=== PATIENT | female | born 2000 | race Two or more races ===

== ENCOUNTER → 2019-10-05 | Outpatient (CLI) | payer SELFPAY ==
--- NOTE | 2019-10-05 14:55 | RADIOLOGY REPORT (SQ) ---
EXAM DESCRIPTION: U/S EF4LBLC TRNABD 1GES W/ODOP COMPLETED DATE/TIME: 10/05/2019 1:38 pm REASON FOR STUDY: ENCTR FOR SUPERVISION OF NORMAL FIRST , 1ST TRIMESTER (Z34.01) Z34.01 EN CNTR FOR SUPRVSN OF NORMAL FIRST PREG, FIRST TRIMES COMPARISON: None. TECHNIQUE: Transabdominal static and realtime grayscale images acquired of the pelvis. Additional se lected spectral and color Doppler images recorded. All images stored on PACs. bHCG: Not available. CLINICAL DATES: LMP 07/28/2019. 10 weeks 0 days. LIMITATIONS: None. FINDINGS: FETUS: Single Living intrauterine . ULTRASOUND EGA: 10 weeks 0 days. ULTRASOUND AMADOR: 05/02/2020 EFW: Not applicable less than 20 weeks. CRL: 3.2 cm FHR: 165 beats per minute. SURVEY: No visualized anomalies. AMNIOTIC FLUID: Adequate amount. PLACENTA: Not yet developed due to early gestation. SUBCHORIONIC BLEED: No SIZE OF BLEED: Not applicable. UTERUS: No masses. No anomalies. CERVICAL LENGTH: 2.4 cm Closed. RIGHT ADNEXA: Normal ovary with normal vascular flow. 3.2 x 2 x 2.3 cm. There is a 2 cm corpus lute um. No adnexal free fluid. No adnexal masses. LEFT ADNEXA: Normal ovary with normal vascular flow. 2.2 x 1.5 x 1.5 cm. No adnexal free fluid. No adnexal masses. FREE FLUID: None. OTHER: No other significant finding. IMPRESSION: LIVING INTRAUTERINE . EGA 10 weeks 0 days. Trimester of : First trimester - 0 to 13 weeks. TECHNICAL DOCUMENTATION: JOB ID: [id number] [employer]- All Rights Reserved rev-01/28 Reading location - IP/workstation name: [email or web address]
== END ==
LOC: RAD 12:35
PROVIDERS: ATTEND Midwife
DX: Z34.01 Encounter for supervision of normal first pregnancy, first trimester (principal); Z3A.10 10 weeks gestation of pregnancy
CPT/HCPCS: 76801

== ENCOUNTER 2020-01-21 01:09 | Outpatient (CLI) | payer MEDICAID ==
[2020-01-21 01:56] LABS: APPEARANCE,URINE CLEAR; BILIRUBIN,URINE NEGATIVE (NEGATIVE); COLOR,URINE YELLOW; GLUCOSE, URINE NEGATIVE (NEGATIVE); KETONES,URINE NEGATIVE (NEGATIVE); LEUKOCYTE ESTERASE,URINE TRACE (NEGATIVE); NITRITE,URINE NEGATIVE (NEGATIVE); PROTEIN,URINE NEGATIVE (NEGATIVE); UROBILINOGEN,URINE NEGATIVE mg/dL (<2.0)
[2020-01-21 02:11] LABS: URINE AMPHETAMINES SCREEN NEGATIVE; URINE BARBITURATES SCREEN NEGATIVE; URINE BENZODIAZEPINES SCREEN NEGATIVE; URINE COCAINE SCREEN NEGATIVE; URINE MARIJUANA (THC) SCREEN NEGATIVE; URINE METHADONE SCREEN NEGATIVE; URINE PHENCYCLIDINE SCREEN NEGATIVE
--- NOTE | 2020-01-21 03:05 | RADIOLOGY REPORT (SQ) ---
EXAM DESCRIPTION: US LIMITED COMPLETED DATE/TME: 01/21/2020 02:05 CLINICAL HISTORY: 19 years Female, cramping Comparison: None. TECHNIQUE/LIMITATION: Targeted OB sonogram for requested parameters only. Transabdominal and transvaginal. FINDINGS: Single IUP EGA is 25w2d with AMADOR of 05/03/2020 EFW is 765g at 42% (George) Cardiac activity: 136-bpm. LILLIAN: 12.3-cm Placenta: Fundal. No demonstrated abruption or previa. (Imaging note: Ultrasound does not detect most cases of abruption and "placental abruption" is considered a clinical diagnosis.) Presentation: Vertex. Cervical length: Mild funneling pattern. Else, 3.0-cm closed appearance. IMPRESSION: Targeted OB sonogram for requested parameters
[2020-01-21] MEDS ORDERED: HYDROXYZINE PAMOATE 50 MG CAPSULE PO ONE (03:22)
[2020-01-21] MEDS ORDERED: HYDROXYZINE PAMOATE 50 MG CAPSULE ONE (03:37)
== END 2020-01-21 04:00 | disposition home or self-care (01) ==
LOC: LC 01:09
PROVIDERS: ATTEND Obstetrics & Gynecology
DX: O47.02 False labor before 37 completed weeks of gestation, second trimester (principal); Z3A.25 25 weeks gestation of pregnancy
CPT/HCPCS: 59899; 81001; 80307; 76815; J3490

== ENCOUNTER 2020-05-05 11:02 | Outpatient (CLI) | payer MEDICAID ==
[2020-05-05 11:53] LABS: APPEARANCE,URINE CLOUDY; BILIRUBIN,URINE NEGATIVE (NEGATIVE); COLOR,URINE YELLOW; GLUCOSE, URINE NEGATIVE (NEGATIVE); KETONES,URINE NEGATIVE (NEGATIVE); LEUKOCYTE ESTERASE,URINE LARGE (NEGATIVE); NITRITE,URINE NEGATIVE (NEGATIVE); PROTEIN,URINE NEGATIVE (NEGATIVE); URINE SPECIFIC GRAVITY 1.015; UROBILINOGEN,URINE NEGATIVE mg/dL (<2.0)
[2020-05-05 12:43] LABS: URINE AMPHETAMINES SCREEN NEGATIVE; URINE BARBITURATES SCREEN NEGATIVE; URINE BENZODIAZEPINES SCREEN NEGATIVE; URINE COCAINE SCREEN NEGATIVE; URINE MARIJUANA (THC) SCREEN NEGATIVE; URINE METHADONE SCREEN NEGATIVE; URINE PHENCYCLIDINE SCREEN NEGATIVE
--- NOTE | 2020-05-05 13:31 | Non Stress Test Report ---
Non Stress Test Datetime Report Generated by CPN: 05/05/2020 13:31 DEMOGRAPHIC EGA NST: 40.1 INDICATION Indication for Study (NST) Other: LC MONITORING Monitor Explained: Monitor Explained; Test Explained; Patient Verbalized Understanding Time on Monitor: 05/05/2020 13:05 Time off Monitor: 05/05/2020 13:26 NST Duration: 21 NST INTERVENTIONS NST Interventions: PO Hydration Physician Notified NST: Dr Kike BABY A: [id number] BABY A Movement : Present Contraction Frequency : irregular FHR Baseline : 130 Accelerations : 15X15 Decelerations : None Variability : Moderate 6-25bpm NST Review: Meets Criteria for Reactive NST NST Review and Verified By : Antonino Dyson RN NST Results: Reactive NST REPORT Report Trigger: Send Report
[2020-05-05] MEDS ORDERED: RINGERS SOLUTION,LACTATED 1,000 ML IV PRN (21:37)
[2020-05-05] MEDS ORDERED: RINGERS SOLUTION,LACTATED 1,000 ML IV ONE (22:00)
[2020-05-05 22:31] LABS: ABSOLUTE MONOCYTES (AUTO) 0.7 10^3/uL (0.1-1.4); ABSOLUTE NEUT (AUTO) 8.2 10^3/uL (1.7-8.2); BASOPHILS % (AUTO) 0.3 % (0-2); EOSINOPHILS % (AUTO) 0.4 % (0-6); HEMATOCRIT 35.5 % (36.0-47.0); HEMOGLOBIN 11.7 g/dL (12.0-15.5); LYMPHOCYTES % (AUTO) 18.4 % (13-45); MEAN CORPUSCULAR HEMOGLOBIN 27.8 pg (27.0-33.4); MEAN CORPUSCULAR HGB CONC 32.9 g/dL (32.0-36.0); MEAN CORPUSCULAR VOLUME 85 fl (80-97); MONOCYTES % (AUTO) 6.6 % (3-13); PLATELET COUNT 169 10^3/uL (150-450); RED CELL DISTRIBUTION WIDTH 15.9 % (11.5-14.0); SEGMENTED NEUTROPHILS % (AUTO) 74.3 % (42-78); TOTAL CELLS COUNTED % (AUTO) 100 %; WHITE BLOOD COUNT 11.1 10^3/uL (4.0-10.5)
== END 2020-05-05 13:35 | disposition home or self-care (01) ==
LOC: LC 11:02 → LR 21:45 → UNDOADMIN 21:45
PROVIDERS: ATTEND Obstetrics & Gynecology
DX: O47.1 False labor at or after 37 completed weeks of gestation (principal); Z3A.40 40 weeks gestation of pregnancy
CPT/HCPCS: 36415; 59025; 80307; 81005; 85025; 86592; 86850; 86900; 86901; 94760

== ENCOUNTER 2020-05-05 20:54 | Inpatient (IN) | payer MEDICAID ==
[2020-05-05] MEDS ORDERED: OXYTOCIN/0.9 % SODIUM CHLORIDE 30 UNIT/500 ML RTUINJ ONE (21:27)
[2020-05-05] MEDS ORDERED: MISOPROSTOL 0.2 MG TABLET ONE (21:27)
[2020-05-05] MEDS ORDERED: LIDOCAINE 1% INJ-PF (10 MG/ML) 30 ML SDV ONE (21:27)
[2020-05-05] MEDS ORDERED: RINGERS SOLUTION,LACTATED 1,000 ML IV PRN (22:34)
[2020-05-05] MEDS ORDERED: PENICILLIN G POTASSIUM 5,000,000 UNIT in DEXTROSE 5%-WATER 100 ML IV ONE (23:00)
[2020-05-05] MEDS ORDERED: RINGERS SOLUTION,LACTATED 1,000 ML IV ONE (23:00)
[2020-05-05] MEDS ORDERED: EPHEDRINE SULFATE INJ 50 MG/1 ML AMPULE ONE (23:07)
[2020-05-05] MEDS ORDERED: ROPIVACAINE HCL 0.2% INJ/PF (2 MG/ML) 20 ML SDV ONE (23:08)
[2020-05-05] MEDS ORDERED: FENTANYL/BUPIVACAINE/NS/PF 300 MCG/150 ML RTUINJ EPI ONE (23:08)
--- NOTE | 2020-05-06 00:32 | Admission Physical ---
Datetime Report Generated by CPN: 05/06/2020 00:32 CURRENT ADMISSION Chief Complaint: Uterine Contractions; Suspected Ruptured Membranes Indication for Induction: Not Applicable Admit Impression : Term, Intrauterine Admit Plan: Admit to Unit; Initiate Labor Protocol ALLERGIES Medication Allergies: No Medication Allergies: No Known Allergies (05/05/2020) Latex: No Latex Allergies Food Allergies: cranberry OBSTETRICAL HISTORY EDC: 05/04/2020 00:00 : 1 Para: 0 Term: 0 : 0 SAB: 0 IAB: 0 Livin Gestational Diabetes: No Rh Sensitization: No Incompetent Cervix: No MICKY: No Infertility: No ART Treatment: No Uterine Anomaly: No IUGR: No Hx Previous C/S: No Macrosomia: No Hx Loss/Stillborn: No PIH: No Hx : No Placenta Previa/Abruption: No Depression/PP Depression: No PTL/PROM: No Post Hemorrhage: No Current Procedures: Ultrasound Obstetrical History Comments: g1-current SEE RECORDS Alcohol: No Marijuana : No Cocaine: No Other Illicit Drugs: No Cigarettes: Never Smoker. [id number] MEDICAL HISTORY Diabetes: No Blood Transfusion: No Pulmonary Disease (Asthma, TB): No Breast Disease: No Hypertension: No Cash Posting Clerk Surgery: No Heart Disease: No Hosp/Surgery: No Autoimmune Disorder: No Anesthetic Complications: No Kidney Disease: No Abnormal Pap Smear: No Neuro/Epilepsy: No Psychiatric Disorders: No Other Medical Diseases: No Hepatitis/Liver Disease: No Significant Family History: No Varicosities/Phlebitis: No Trauma/Violence : No Thyroid Dysfunction: No Medical History Comments: BV INFECTIOUS HISTORY Gonorrhea: No Genital Herpes: No Chlamydia: No Tuberculosis: No Syphilis: No Hepatitis: No HIV/AIDS Exposure: No Rash or Viral Illness: No HPV: No PHYSICAL EXAM General: Normal HEENT: Normal Neurologic: Normal Thyroid: Normal Heart: Normal Lungs: Normal Breast: Normal Back: Normal Abdomen: Normal Genitourinary Exam: Normal Extremities: Normal DTRs: Normal Pelvic Type: Adequate Vital Signs: Reviewed VAGINAL EXAM Dilatation: 10 Effacement: 100 Station: 3 MEMBRANES Pooling: Positive Membranes: Ruptured Amniotic Fluid Color: Clear FETUS A EGA: 40.2 Monitoring: External US FHR- Baseline: 140 Variability: Moderate 6-25bpm Accelerations: 15X15 Decelerations: None FHR Category: Category I Estimated Weight (gm): 3400 Presentation: Vertex PLANS FOR LABOR AND DELIVERY Labor and Delivery: None Pain Management: Medications; Epidural Feeding Preference: Breast Benefit of Breast Feed Discussed: Yes Circumcision: N/A INFORMED CONSENT Signature: with User ID: [email or web address]
[2020-05-06] MEDS ORDERED: PROMETHAZINE HCL INJ 25 MG/1 ML VIAL IV PRN (01:33)
[2020-05-06] MEDS ORDERED: DIBUCAINE 1% OINTMENT 28 GM TP PRN (01:33)
[2020-05-06] MEDS ORDERED: BENZOCAINE/MENTHOL AEROSOL SPRAY 56 ML TOP PRN (01:33)
[2020-05-06] MEDS ORDERED: MAGNESIUM HYDROXIDE SUSP 30 ML UDCUP PO PRN (01:33)
[2020-05-06] MEDS ORDERED: PROMETHAZINE HCL 25 MG TABLET PO PRN (01:33)
[2020-05-06] MEDS ORDERED: DIPH/PERTUSS(ACELL)/TETANUS VAC/PF 0.5 ML SYR (>=10YO) IM PRN (01:33)
[2020-05-06] MEDS ORDERED: ZOLPIDEM TARTRATE 5 MG TABLET PO PRN (01:33)
[2020-05-06] MEDS ORDERED: GLYCERIN/WITCH HAZEL LEAF 1 EACH MED..WIPE TP PRN (01:33)
[2020-05-06] MEDS ORDERED: MEASLES,MUMPS&RUBELLA VACC/PF 0.5 ML VIAL SUBCUT PRN (01:33)
[2020-05-06] MEDS ORDERED: ACETAMINOPHEN 650 MG SUPP.RECT PR PRN (01:33)
[2020-05-06] MEDS ORDERED: PROMETHAZINE HCL 25 MG SUPP.RECT PR PRN (01:33)
[2020-05-06] MEDS ORDERED: ACETAMINOPHEN WITH CODEINE #3 TABLET PO PRN ×2 (01:33)
[2020-05-06] MEDS ORDERED: NA PHOS,M-B/NA PHOS,DI-BA (ADULT) 133 ML ENEMA PR PRN (01:33)
[2020-05-06] MEDS ORDERED: OXYTOCIN/0.9 % SODIUM CHLORIDE 30 UNIT/500 ML RTUINJ IV PRN (01:33)
[2020-05-06] MEDS ORDERED: DIPHENHYDRAMINE HCL 25 MG CAPSULE PO PRN (01:33)
[2020-05-06] MEDS ORDERED: PSEUDOEPHEDRINE HCL 30 MG TABLET PO PRN (01:33)
[2020-05-06] MEDS ORDERED: PENICILLIN G POTASSIUM 2,500,000 UNIT in DEXTROSE 5%-WATER 50 ML IV SCH (02:00)
--- NOTE | 2020-05-06 04:28 | Birth Certificate Data ---
Cert Data Datetime Report Generated by CPN: 05/06/2020 04:28 CERTIFICATE DATA 47a. Care: Yes (01/21/2020 01:12:Anya Celestin RN) 47b. Date of First Visit: 09/08/2019 00:00 (01/21/2020 01:12:Christianne Bowens RN) 47c. Date of Last Visit: 05/02/2020 00:00 (01/21/2020 01:12:Iris Becker RN) 47d. Number of Visits: 13 (01/21/2020 01:12:Iris Becker RN) 48a. Number of Prev Live Births: 0 (01/21/2020 01:12:Christianne Bowens RN) 48b. Now Livin (01/21/2020 01:12:Anya Celestin RN) 48c. Live Births Now : 0 (01/21/2020 01:12:QS system process) 48e. Losses: 0 (01/21/2020 01:12:Christianne Bowens RN) RISK FACTORS IN THIS 49a. Diabetes: No (01/21/2020 01:12:Anya Celestin RN) 49b. Hypertension: No (01/21/2020 01:12:Anya Celestin RN) 49c. Previous Births: 0 (01/21/2020 01:12:Anya Celestin RN) 49d. Stillborns: No (01/21/2020 01:12:Anya Celestin RN) 49d. IUGR: No (01/21/2020 01:12:Anya Celestin RN) 49e. Infertility Treatment: No (01/21/2020 01:12:Anya Celestin RN) Mother's Height 50b. Height Inches: 59 (05/05/2020 23:11:QS system process) Mother's Weight 51a. Pre- Weight (lbs): 88 (01/21/2020 01:12:Anya Celestin RN) 51b. Weight at Delivery (lbs): 117 (05/05/2020 23:11:QS system process) Infections Present/Treated 53a. Gonorrhea: No (01/21/2020 01:12:Anya Celestin RN) Results this Hospital Visit : Negative (01/21/2020 01:12:Christianne Bowens RN) 53b. Syphilis: No (01/21/2020 01:12:Anya Celestin RN) 53c. Chlamydia: No (01/21/2020 01:12:Anya Celestin RN) Results this Hospital Visit: Negative (01/21/2020 01:12:Christianne Bowens RN) 53d. Hepatitis B: No (01/21/2020 01:12:Anya Celestin RN) Results this Hospital Visit: Negative (01/21/2020 01:12:Christianne Bowens RN) 53e. Hepatitis C: Negative (01/21/2020 01:12:Christianne Bowens RN) 53h. Mother Tested for HBsAG: Yes (01/21/2020 01:12:Christianne Bowens RN) 53i. Date Tested: 10/11/2019 00:00 (01/21/2020 01:12:Iris Becker RN) 53j. Test Result: Negative (01/21/2020 01:12:Christianne Bowens RN) Obstetric Procedures 54a, b, c. Obstetric Procedures: Ultrasound (01/21/2020 01:12:Anya Celestin RN) Onset of Labor 56a. PROM >12 Hrs: 2.17 (01/21/2020 01:12:QS system process) 56b. Precipitous Labor <3 Hrs: 4 (01/21/2020 01:12:QS system process) 56c. Prolonged Labor > 20 Hrs: 4 (01/21/2020 01:12:QS system process) 57a. Induction of Labor: N/A (01/21/2020 01:12:Iris Becker RN) 57c. Non-Vertex Presentation A: Vertex (01/21/2020 01:12:Iris Becker RN) 57d. Steroids - Lung Mat: None (01/21/2020 01:12:Iris Becker RN) 57d. Steroids - Lung Mat: Not Applicable (01/21/2020 01:12:Iris Becker RN) 57g. Moderate/Heavy Meconium: Clear (05/05/2020 23:13:Iris Becker RN) 57h. Intolerance of Labor: N/A (01/21/2020 01:12:Iris Becker RN) : N/A (01/21/2020 01:12:Iris Becker RN) 57i. Epidural/Spinal Anesthesia: Epidural (01/21/2020 01:12:Iris Becker RN) Method of Delivery 58a. Forceps - Unsuccessful A: N/A (01/21/2020 01:12:Iris Becker RN) 58b. Vacuum - Unsuccessful A: N/A (01/21/2020 01:12:Iris Becker RN) 58c. Presentation at 58c. Presentation at - A : Vertex (01/21/2020 01:12:Iris Becker RN) 58c. Presentation at - A : N/A (01/21/2020 01:12:Iris Becker RN) 58c. Presentation at - A : Cephalic (05/05/2020 21:19:Iris Becker RN) Final Route and Method of Del 58d. Baby A Route/Delivery: Vaginal (01/21/2020 01:12:Iris Becker RN) 58e. Trial of Labor Attempted: No (01/21/2020 01:12:Iris Becker RN) 58e. Trial of Labor Attempted A: N/A (01/21/2020 01:12:Iris Becker RN) 58e. Trial of Labor Attempted B: N/A (01/21/2020 01:12:Iris Becker RN) Maternal Morbidity 59b. 3rd or 4th Degree Lacs: Perineal (01/21/2020 01:12:Iris Becker RN) 59b. 3rd or 4th Degree Lacs: Second Degree (01/21/2020 01:12:Iris Becker RN) Birthweight Baby A: 3147 (01/21/2020 01:12:Iris Becker RN) 60a. Pounds : 6 (01/21/2020 01:12:QS system process) 60b. Ounces: 15 (01/21/2020 01:12:QS system process) 61. GA at Delivery Baby A: 40.2 (01/21/2020 01:12:Iris Becker RN) : Full Term- 39- 40.6 Weeks (01/21/2020 01:12:QS system process) 62a. 5 Minute Baby A: 9 (01/21/2020 01:12:QS system process)
--- NOTE | 2020-05-06 04:28 | Delivery Summary ---
Del Sum A-C Datetime Report Generated by CPN: 05/06/2020 04:27 DELIVERY PERSONNEL DELIVERY PERSONNEL: [id number] Delivery Doctor:: Hiwot Stokes MD Labor and Delivery Nurse:: Iris Becker RNagriculture teacher Nurse:: PIERCE Holman Market Research Consultant/[employer] HAND: Liliam Ross, ST MATERNAL INFORMATION Delivery Anesthesia: Epidural Medications After Delivery: Pitocin 30 Units in 500ml NS/D5W Estimated Blood Loss (ml): 150 Delivery QBL: 200 Maternal Complications: None LABOR SUMMARY EDC: 05/04/2020 00:00 No. Babies in Womb: 1 Attempted: No Labor Anesthesia: Epidural LABOR INFORMATION Reason for Induction: Not Applicable Onset of Labor: 05/05/2020 21:00 Complete Dilatation: 05/06/2020 00:15 Oxytocin: N/A Group B Beta Strep: Negative Antibiotics # of Doses: 0 Steroids Given: None Reason Steroids Not Administered: Not Applicable MEMBRANES Membranes Rupture Method: Spontaneous Rupture of Membranes: 05/05/2020 23:13 Length of Rupture (hr): 2.17 Amniotic Fluid Color: Clear Amniotic Fluid Amount: Small Amniotic Fluid Odor: Normal STAGES OF LABOR Stage 1 hr: 3 Stage 1 min: 15 Stage 2 hr: 1 Stage 2 min: 8 Stage 3 hr: 0 Stage 3 min: 2 Total Time in Labor hr: 4 Total Time in Labor min: 25 VAGINAL DELIVERY Episiotomy: None Laceration #1: Perineal Laceration Extension #1: Second Degree Laceration Repair: Yes Laceration Repair Note: 2-0 vicrycl repair in normal fashion Sponge Count Correct: Yes CSECTION DELIVERY Primary Indication: N/A Secondary Indication: N/A CSection Incidence: N/A Labor: N/A Elective: N/A CSection Incision: N/A BABY A INFORMATION Delivery Date/Time: 05/06/2020 01:23 Method of Delivery: Vaginal Born in Route : No : N/A Forceps: N/A Vacuum Extraction: N/A Shoulder Dystocia : No PRESENTATION/POSITION BABY A Presentation: Cephalic Cephalic Presentation: Vertex Breech Presentation: N/A PLACENTA INFORMATION BABY A Placenta Delivery Time : 05/06/2020 01:25 Placenta Method of Delivery: Spontaneous Placenta Status: Delivered SCORES BABY A Heart Rate 1 min: >100 bpm Resp Effort 1 min: Good Cry Reflex Irritability 1 min: Cough or Sneeze or Pulls Away Muscle Tone 1 min: Active Motion Color 1 min: Body [place], Extremities Blue Resuscitation Effort 1 min: N/A SCORE 1 MIN: 9 Heart Rate 5 min: >100 bpm Resp Effort 5 min: Good Cry Reflex Irritability 5 min: Cough or Sneeze or Pulls Away Muscle Tone 5 min: Active Motion Color 5 min: Body [place], Extremities Blue SCORE 5 MIN: 9 INFORMATION BABY A Gestational Age at Delivery: 40.2 Gestational Status: Full Term- 39- 40.6 Weeks Outcome : Liveborn Condition : Stable Infant Sex: Female IDENTIFICATION BABY A Infant Verification Date/Time: 05/06/2020 01:38 ID Band Number: [id number] Mother's Name Verified: Yes Infant RN Verifying : Lubna Boss, RN Additional Verifying Personnel: Serafin Corcoran RN WEIGHT/LENGTH BABY A Birthweight (gm): 3147 Weight (lb): 6 Infant Weight (oz): 15 Infant Length (in): 19.50 Length (cm): 49.53 CORD INFORMATION BABY A No. Cord Vessels: 3 Nuchal Cord : Around Neck x1, Loose Cord Blood Taken: Yes-For Storage (Mom's Blood type +) Suction: None ASSESSMENT BABY A Skin to Skin: Yes Skin to Skin Time (min): 60 BABY B INFORMATION : N/A SIGNATURES Signature: with User ID: [email or web address]
[2020-05-06] MEDS: IBUPROFEN 800 MG TABLET PO SCH ×3 (06:24→22:49)
[2020-05-06] MEDS: FAMOTIDINE 20 MG TABLET PO SCH ×2 (09:47→22:49)
[2020-05-06] MEDS: FERROUS SULFATE 325 MG TABLET PO SCH ×2 (09:47→19:05)
[2020-05-06] MEDS: SENNOSIDES/DOCUSATE 8.6-50 MG 1 EACH TABLET PO SCH (09:47)
[2020-05-06] MEDS: PRENATAL VITAMIN W DHA CAPSULE PO SCH (09:47)
[2020-05-06] MEDS: DOCUSATE SODIUM 100 MG CAPSULE PO SCH ×2 (09:48→19:04)
[2020-05-06] MEDS ORDERED: (PENDING PHARMACY ID) (Pnv No.95/Ferrous Fum/Folic Ac [Prenatal Vitamins Tablet] 1 EACH) PO SCH (10:00)
--- NOTE | 2020-05-06 11:31 | PDOC PROGRESS REPORT ---
Subjective-OB Progress Note for:: 05/06/20 - Delivery day, doing well. needs to void. A+, Rubella immune Physical Exam (OB) Vital Signs: Temp Pulse Resp BP Pulse Ox 97.9 F 62 16 107/54 L 100 05/06/20 10:19 05/06/20 08:01 05/06/20 08:01 05/06/20 08:01 05/06/20 08:01 Intake & Output 05/05/20 05/06/20 05/07/20 06:59 06:59 06:59 Intake Total 400 Balance 400 Weight 52.7 kg - General General Appearance: Appears well, Alert - PIH/Pre-Eclampsia DTR's: 2 + Clonus: Negative Headache: Absent Epigastric Pain: No Visual Changes: No - Maternal Morbidity 59. Maternal Morbidity (serious complications experinced by the mother associated with labor and delivery: None of the above - Lochia Lochia Amount: Scant < 10 ml Lochia Color: Rubra/Red - Abdomen Description: Soft Hernia Present: No Fundal Description: Firm, Midline Fundal Height: u/u - u/2 - Respiratory Respiratory Status: No respiratory distress - Genitourinary Genitourinary Note: to void - Extremities Upper extremity: Normal inspection Lower extremities: Normal inspection - Neurological Cognition: Normal Orientation: AAOx4 - Skin Skin Temperature: Warm Skin Moisture: Dry Assessment and Plan(PN) - Assessment and Plan (1) (normal spontaneous vaginal delivery) Is this a current diagnosis for this admission?: Yes - Time Spent with Patient Time with patient: Less than 15 minutes Medications reviewed and adjusted accordingly: Yes - Disposition Anticipated Discharge Disposition: Home, Self Care Anticipated Discharge Timeframe: within 48 hours
[2020-05-07] MEDS: IBUPROFEN 800 MG TABLET PO SCH ×3 (05:25→22:00)
[2020-05-07 07:05] LABS: HEMATOCRIT 29.7 % (36.0-47.0); HEMOGLOBIN 9.8 g/dL (12.0-15.5); MEAN CORPUSCULAR HEMOGLOBIN 27.9 pg (27.0-33.4); MEAN CORPUSCULAR VOLUME 85 fl (80-97); PLATELET COUNT 146 10^3/uL (150-450); RED BLOOD COUNT 3.51 10^6/uL (3.72-5.28); RED CELL DISTRIBUTION WIDTH 16.3 % (11.5-14.0); WHITE BLOOD COUNT 11.4 10^3/uL (4.0-10.5)
[2020-05-07] MEDS: DOCUSATE SODIUM 100 MG CAPSULE PO SCH ×2 (12:30→18:03)
[2020-05-07] MEDS: FAMOTIDINE 20 MG TABLET PO SCH ×2 (12:31→22:00)
[2020-05-07] MEDS: FERROUS SULFATE 325 MG TABLET PO SCH ×2 (12:31→18:03)
[2020-05-07] MEDS: SENNOSIDES/DOCUSATE 8.6-50 MG 1 EACH TABLET PO SCH (12:31)
[2020-05-07] MEDS: PRENATAL VITAMIN W DHA CAPSULE PO SCH (12:31)
--- NOTE | 2020-05-07 14:47 | PDOC PROGRESS REPORT ---
Subjective-OB Progress Note for:: 05/07/20 Subjective: reports bleeding slowing, pain controlled with current meds. denies needs Physical Exam (OB) Vital Signs: Temp Pulse Resp BP Pulse Ox 97.9 F 63 16 93/53 L 100 05/07/20 10:00 05/07/20 07:45 05/07/20 07:45 05/07/20 07:45 05/07/20 07:45 Intake & Output 05/06/20 05/07/20 05/08/20 06:59 06:59 06:59 Intake Total 400 Balance 400 Weight 52.7 kg - Maternal Morbidity 59. Maternal Morbidity (serious complications experinced by the mother associated with labor and delivery: None of the above - Abdomen Description: Soft, Round Hernia Present: No Fundal Description: Firm, Midline Fundal Height: u/u - u/2 - Abdominal Distension: No distension Tenderness: Nontender - Extremities Lower extremities: Ami's sign - neg Calf: Normal, Nontender Objective-Diagnostic Laboratory: 05/07/20 06:50 05/07/20 06:50 WBC 11.4 H RBC 3.51 L Hgb 9.8 L Hct 29.7 L MCV 85 MCH 27.9 MCHC 33.0 RDW 16.3 H Plt Count 146 L Assessment and Plan(PN) - Assessment and Plan (1) (normal spontaneous vaginal delivery) Is this a current diagnosis for this admission?: Yes (2) Second degree perineal laceration Is this a current diagnosis for this admission?: Yes - Time Spent with Patient Time with patient: Less than 15 minutes Medications reviewed and adjusted accordingly: Yes - Disposition Anticipated Discharge Disposition: Home, Self Care Anticipated Discharge Timeframe: within 24 hours
[2020-05-08] MEDS: IBUPROFEN 800 MG TABLET PO SCH ×2 (05:40→13:00)
[2020-05-08 08:10] VITALS: BP 98/64
[2020-05-08 10:48] LABS: HEMATOCRIT 35.1 % (36.0-47.0); HEMOGLOBIN 11.4 g/dL (12.0-15.5); MEAN CORPUSCULAR HEMOGLOBIN 27.7 pg (27.0-33.4); MEAN CORPUSCULAR HGB CONC 32.6 g/dL (32.0-36.0); MEAN CORPUSCULAR VOLUME 85 fl (80-97); PLATELET COUNT 175 10^3/uL (150-450); RED BLOOD COUNT 4.13 10^6/uL (3.72-5.28); RED CELL DISTRIBUTION WIDTH 16.2 % (11.5-14.0); WHITE BLOOD COUNT 9.3 10^3/uL (4.0-10.5)
--- NOTE | 2020-05-08 11:54 | PDOC DISCHARGE SUMMARY ---
Impression - Admit/DC Date/PCP Admission Date/Primary Care Provider: 05/05/20 21:45 FLIP PIERCE CNM Discharge Date: 05/08/20 - Discharge Diagnosis (1) Anemia affecting in third trimester Is this a current diagnosis for this admission?: Yes (2) (normal spontaneous vaginal delivery) Is this a current diagnosis for this admission?: Yes (3) Second degree perineal laceration Is this a current diagnosis for this admission?: Yes - Assessment Summary: 19yo G1 now P1 s/p ppd2. stable and ready for discharge understands warning s/s and when to rtc/[facility] - Additional Information Resuscitation Status: Full Code Discharge Activity: Activity As Tolerated, Balance Activity w/Rest, No Lifting Over 10 Pounds, Pelvic Rest, No tub bath Referrals: FLIP PIERCE CNM [Primary Care Provider] - Prescriptions: Ibuprofen [Motrin 800 mg Tablet] 800 mg PO Q8HP PRN #20 tablet PRN Reason: Abdominal Cramping Docusate Sodium [Colace 100 mg Capsule] 100 mg PO BID #60 capsule Ferrous Sulfate [Feosol 325 mg Tablet] 325 mg PO BID #60 tablet Home Medications: Pnv No.95/Ferrous Fum/Folic AC [ Vitamins Tablet] 1 each PO DAILY Docusate Sodium [Colace 100 mg Capsule] 100 mg PO BID #60 capsule 05/08/20 Ferrous Sulfate [Feosol 325 mg Tablet] 325 mg PO BID #60 tablet 05/08/20 Ibuprofen [Motrin 800 mg Tablet] 800 mg PO Q8HP PRN #20 tablet 05/08/20 Hospital Course 59. Maternal Morbidity (serious complications experinced by the mother associated with labor and delivery: None of the above Results Laboratory Results: WBC 9.3 10^3/uL (4.0-10.5) 05/08/20 10:15 RBC 4.13 10^6/uL (3.72-5.28) 05/08/20 10:15 Hgb 11.4 g/dL (12.0-15.5) L 05/08/20 10:15 Hct 35.1 % (36.0-47.0) L 05/08/20 10:15 MCV 85 fl (80-97) 05/08/20 10:15 MCH 27.7 pg (27.0-33.4) 05/08/20 10:15 MCHC 32.6 g/dL (32.0-36.0) 05/08/20 10:15 RDW 16.2 % (11.5-14.0) H 05/08/20 10:15 Plt Count 175 10^3/uL (150-450) 05/08/20 10:15
[2020-05-08] MEDS: FAMOTIDINE 20 MG TABLET PO SCH (12:59)
[2020-05-08] MEDS: SENNOSIDES/DOCUSATE 8.6-50 MG 1 EACH TABLET PO SCH (12:59)
[2020-05-08] MEDS: DOCUSATE SODIUM 100 MG CAPSULE PO SCH (12:59)
[2020-05-08] MEDS: PRENATAL VITAMIN W DHA CAPSULE PO SCH (12:59)
[2020-05-08] MEDS: FERROUS SULFATE 325 MG TABLET PO SCH (12:59)
== END 2020-05-08 13:10 | disposition home or self-care (01) | DRG 807 ==
LOC: LC 20:54 → LR 21:45 → 2S 05-06 04:47
PROVIDERS: ADMIT Obstetrics & Gynecology; ATTEND Obstetrics & Gynecology
PROC: 10E0XZZ Delivery of Products of Conception, External Approach (ICD-10-PCS; principal; 2020-05-06)
PROC: 0KQM0ZZ Repair Perineum Muscle, Open Approach (ICD-10-PCS; 2020-05-06)
DX: O70.1 Second degree perineal laceration during delivery (principal); O69.81X0 Labor and delivery complicated by cord around neck, without compression, not applicable or unspecified; O99.02 Anemia complicating childbirth; D64.9 Anemia, unspecified; Z3A.40 40 weeks gestation of pregnancy; Z37.0 Single live birth
CPT/HCPCS: 36415; 85027; J2540; J2590; J2795; J3010; J3490; J7060